=== PATIENT | male | born 1965 | race Caucasian/White ===

== ENCOUNTER 2016-12-24 17:54 | Emergency (ER) | payer OTHER ==
[2016-12-24 18:19] VITALS: BP 116/82
--- NOTE | 2016-12-24 21:01 | Emergency Department Report ---
Head Injury w/o Laceration - HPI Chief Complaint: Head Injury Stated Complaint: HURT HEAD Time Seen by Provider: 12/24/16 20:58 Occurred When: Today Mechanism: Direct Blow Location: Parietal (right), Other (there is a small laceration to the right parietal region) Severity: moderate Head Inj w/o Lac: Yes Headache, No Loss of Consciousness, No Nausea, No Blurred Vision, No Altered Mental Status, No Focal Deficit, No Swelling, No Bruising ED General PMH - Past Medical History General Medical History: no medical history Surgical History: no surgical history - Family History Significant Family History: no pertinent family hx - Social History Smoking Status: Never Smoker ED Neuro ROS - Review of Systems Constitutional: no symptoms reported Eyes (ROS): denies: pain, photophobia Ears, Nose, Mouth, Throat: no symptoms reported. denies: epistaxis, mouth pain , throat pain, throat swelling Neurological: headache. denies: numbness Head Injury W/O Lac Exam - Exam General: Vital signs noted. No distress. Alert and acting appropriately. Head: Yes Pupils are PERRL, Yes Laceration (small laceration to the right parietal region), No Hemotympanum, No Epistaxis, No Stepoff/Deformity Chest, Abd, & Ext: No Neck Pain, No Clear Lung Sounds Neuroligical (Head Inj W/O Lac: No Lethargy, No Disorientation, No Focal Numbness, No Focal Weakness, No Normal Speech, No Normal Gait - Laceration /Wound Repair Head Wound Location: head Wound Length (cm): 4 Wound's Depth, Shape: superficial, linear Wound Explored: clean Betadine Prep?: No Wound Repaired With: sutures (Romero 3) Sterile Dressing Applied?: No ED Disposition Clinical Impression: Laceration of head Disposition: DC-01 TO HOME OR SELFCARE Is pt being admited?: No Does the pt Need Aspirin: No Condition: Stable Instructions: Laceration (ED) Additional Instructions: Follow-up in 5 days for staple removal. Do not shower for the next 24 hours. Referrals: PRIMARY CARE, [Primary Care Provider] - 3-5 Days Time of Disposition: 21:10
== END 2016-12-24 21:15 | disposition home or self-care (01) ==
LOC: ED 17:54
DX: S01.01XA Laceration without foreign body of scalp, initial encounter (principal); X58.XXXA Exposure to other specified factors, initial encounter; Y93.9 Activity, unspecified; Y92.9 Unspecified place or not applicable; Y99.9 Unspecified external cause status
CPT/HCPCS: 99282